=== PATIENT | male | born 1980 | race African-American/Black ===

== ENCOUNTER 2017-01-20 09:37 | Emergency (ER) | payer MEDICAID, OTHER ==
[2017-01-20] MEDS ORDERED: CEPHALEXIN 250 MG CAPSULE PO STA (10:26)
[2017-01-20] MEDS ORDERED: TETANUS/DIPHTHERIA/PERTUSSIS 0.5 ML SYRINGE IM ONE ×2 (10:26→10:31)
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
[2017-01-20] MEDS ORDERED: CEPHALEXIN 250 MG CAPSULE PO ONE (10:31)
--- NOTE | 2017-01-20 11:00 | XRAY Preliminary Report ---
Exam: XR Foot 3 View LT IMPRESSION: 1. No fracture 2. Small bunion [facility] SITE ID: [id number]
--- NOTE | 2017-01-20 11:02 | XRAY Report ---
EXAM: LEFT FOOT RADIOGRAPHY EXAM DATE: 01/20/2017 10:46 AM. CLINICAL HISTORY: Left foot injury, at base of 4th toe. COMPARISON: None. TECHNIQUE: 3 views. FINDINGS: Bones: Os navicularis.. No fractures or bone lesions. Joints: Halgus valgus measuring 22 degrees. Soft Tissues: Normal. No soft tissue swelling. IMPRESSION: 1. No fracture 2. Small bunion [facility] Referring Provider Line: [phone] SITE ID: [id number]
[2017-01-20 11:54] VITALS: BP 132/71
== END 2017-01-20 11:53 | disposition home or self-care (01) ==
LOC: ED 09:37
DX: S91.332A Puncture wound without foreign body, left foot, initial encounter (principal); S90.32XA Contusion of left foot, initial encounter; W22.03XA Walked into furniture, initial encounter; Y92.018 Other place in single-family (private) house as the place of occurrence of the external cause; M21.612 Bunion of left foot; F17.200 Nicotine dependence, unspecified, uncomplicated; Z23 Encounter for immunization
CPT/HCPCS: 73630; 90471; 90715; 99283; A9270